=== PATIENT | male | born 1940 | race Caucasian/White ===

== ENCOUNTER → 2017-02-25 | Day surgery (SDC) | payer MEDICARE ==
[~2017-02-25] MED LIST: BUPIVACAINE/EPINEPHRINE 0.5% PF 10 ML VIAL ONE; LACTATED RINGER'S 1000 ML INJ 1,000 ML ONE; ONDANSETRON HCL 4 MG/2 ML VIAL IV PUSH ONE; PROPOFOL 100 MG/10 ML INJ IV ONE; ceFAZolin 2 GM PREMIX 50 ML ONE; traMADol HCL 50 MG TAB ONE
--- NOTE | 2017-02-25 14:53 | TN ---
cc: YAEL ECKERT M.D. DATE OF SURGERY: 02/25/2017 PREOPERATIVE DIAGNOSIS Incarcerated umbilical hernia. POSTOPERATIVE DIAGNOSIS Incarcerated umbilical hernia. PROCEDURE Open repair incarcerated umbilical hernia with mesh. SURGEON Dr. Yael Eckert. [employer] W[employer]ER JESUS Lopez. ANESTHESIA General. INDICATIONS This is a 76-year-old gentleman with Parkinson's who has an incarcerated umbilical hernia. It creates discomfort. He was desirous of repair. INTRAOPERATIVE FINDINGS Incarcerated preperitoneal fatty tissue through umbilical hernia defect less than 2 cm in size. The patient was admitted for a primary repair with onlay mesh. ESTIMATED BLOOD LOSS Less than 5 mL. This procedure was assisted by my nurse practitioner. The skill set of an BOOM CRANE OPERATOR was medically necessary to provide appropriate visualization and improved efficiency and safety in the completion of the operation. The certified surgical technologist was at the back table providing appropriate instrumentation while the nurse practitioner directly assisted me. She was present through the entirety of the procedure. DESCRIPTION OF PROCEDURE IN DETAIL The patient was identified as Karyn Young, taken to the operating room and placed in the supine position. Sequential compression devices were placed on the bilateral lower extremities. Following induction of adequate general anesthesia with a laryngeal mask, the patient's abdomen was prepped and draped in the usual sterile fashion with Betadine. A timeout procedure was performed. Following completion of the timeout procedure to everyone's satisfaction within the room, the proposed infraumbilical small transverse incision was made with a marking pen and infiltrated with local anesthetic. The incision was carried out with a scalpel. The umbilical skin was lifted off the herniated preperitoneal fatty tissue which was relieved from the overlying skin completely as well as the subcutaneous fatty tissue. The hernia defect was about a centimeter in size and was extended slightly laterally to the left to allow for reduction of the herniated tissue. The anterior fascia was circumferentially cleared with electrocautery at its junction with the subcutaneous fatty tissue. The defect was primarily approximated with interrupted inverted 0 Prolene sutures. A small piece of mesh about 5 cm to 6 cm squared was cut from a 3 x 6 inch piece of polypropylene mesh, [employer] Pro[employer], placed in the onlay position and held in place at six places with 0 Ethibond sutures. The wound was irrigated copiously with saline. There was no evidence of bleeding. The umbilicus was reformed with 2-0 Vicryl sutures to reform the inward projection of the umbilicus and close the subcutaneous space. The skin was approximated with running 4-0 Monocryl subcuticular suture. Dressings were applied with Mastisol and half-inch brown Steri-Strips, gauze and Tegaderm. The patient tolerated the procedure without apparent complication. Sponge, needle and instrument counts were correct at the end of the case. An abdominal binder was placed. MD SIDRA Malik/TRISTON /2:32 PM /2:41 PM
== END | disposition home or self-care (01) ==
LOC: ESDC 11:55
PROVIDERS: ATTEND Surgery Trauma Surgery
DX: K42.0 Umbilical hernia with obstruction, without gangrene (principal); G20 Parkinson's disease
CPT/HCPCS: 00750; 49587; C1781; J0690; J2405; J3010; J7120